=== PATIENT | male | born 1975 | race African-American/Black ===

== ENCOUNTER 2016-08-18 11:13 | Emergency (ER) | payer OTHER ==
--- NOTE | ~2016-08-18 | CR117 ---
[facility] A Service of [facility] & [facility] RADIOLOGY TEXT RESULTS PATIENT: DERICK GARCIA LOCATION: CFTX : 73 UNIT #: [id number] AGE: [address]: Nohemi Castle APRN SEX: M ORDER DR: [id number] [facility] [address] [place], [place] [address] [id number] MR#: [id number] Acc #: [id number] NAME: DERICK GARCIA. : 1975 SEX: M STUDY DATE/TIME: 08/18/2016 10:53 UNIT: [facility] ROOM: STUDY DESCRIPTION: CR Finger 2 View Thumb Rt Attending Physician: Nohemi Castle A.P.R.N. Ordering Physician: Ed Mateo Olsen M.D. Primary Care Physician: No Primary Care Physician MEDICAL IMAGING REPORT This report is preliminary unless electronic signature is present EXAM Right thumb series, 08/18/2016. HISTORY 40-year-old male with pain in the right thumb and numbness. No known injury. Symptoms for 3 days. FINDINGS 3 views of the right thumb; no comparisons. The examination is negative. No acute fracture or retained opaque foreign body. Joint space is preserved. IMPRESSION Negative Dictated by... Martell Damon M.D. THIS IS AN ELECTRONICALLY VERIFIED REPORT aMrtell Damon M.D. at 08/19/2016 7:39 AM Joseline TD: 08/18/2016 13:25 JOB #: [id number] MEDICAL IMAGING REPORT COPY
== END 2016-08-18 12:00 | disposition home or self-care (01) ==
LOC: CFTX 11:13
DX: M79.644 Pain in right finger(s) (principal); F17.200 Nicotine dependence, unspecified, uncomplicated
CPT/HCPCS: 73140; 99282